=== PATIENT | female | born 1940 | race African-American/Black ===

== ENCOUNTER 2017-12-05 09:49 | Outpatient (CLI) | payer OTHER | END 2017-12-05 09:50 | disposition home or self-care (01) | LOC: BICMAMMO 09:49 | PROVIDERS: ATTEND Family Medicine | DX: Z12.31 Encounter for screening mammogram for malignant neoplasm of breast (principal); R92.1 Mammographic calcification found on diagnostic imaging of breast; Z80.3 Family history of malignant neoplasm of breast | CPT/HCPCS: 77067 ==

== ENCOUNTER 2019-05-31 08:17 | Outpatient (CLI) | payer OTHER ==
--- NOTE | 2019-05-31 10:44 | ULT ---
BILATERAL RENAL ULTRASOUND: Date: 05/31/19 HISTORY: Chronic renal insufficiency. FINDINGS: The right kidney measures 8.2 cm in length and the left kidney measures 8.4 cm in length. No focal ma ss or hydronephrosis seen on either side. There is mild prominence of the left renal pelvis. Pre-void bladder volume measures 150 mL with a residual volume of 60 mL. Bilateral ureteral jets are seen. IMPRESSION: Significant post-void residual bladder volume. POS: OFF
== END 2019-05-31 08:18 | disposition home or self-care (01) ==
LOC: BICULT 08:17
PROVIDERS: ATTEND Internal Medicine Nephrology
DX: N18.3 Chronic kidney disease, stage 3 (moderate) (principal)
CPT/HCPCS: 76770

== ENCOUNTER 2020-04-18 14:38 | Emergency (ER) | payer OTHER ==
[2020-04-18] MEDS ORDERED: Loperamide HCl 2 MG CAP ONE (15:04)
[2020-04-18 15:17] LABS: Hemoglobin 12.5 g/dL (12.0-16.0); Mean Corpuscular HGB CONC 34.6 g/dL (32.0-36.0); Mean Corpuscular Hemoglobin 28.6 pg (27.0-31.0); Mean Corpuscular Volume 82.7 fL (78.0-98.0); Mean Platelet Volume 9.2 fL (7.4-10.4); Platelet Count 174 thou/uL (130-400); RBC Distribution Width 13.4 % (11.5-14.5); Red Blood Cell (RBC) Count 4.35 mill/uL (4.20-5.40); White Blood Cell (WBC) Count 6.6 thou/uL (4.8-10.8)
[2020-04-18 15:26] LABS: Bilirubin Negative (Negative); Blood, Urine Negative (Negative); Clarity Clear (Clear); Glucose, Urine (Dipstick) Normal (Negative); Leukocyte Negative Leu/uL (Negative); Nitrite Negative (Negative); Protein, Urine (Dipstick) 30 mg/dL (Neg-Trace); RBC/HPF None Seen HPF (0-3); Squamous Epithelial 0-3 HPF (0-3); Urobilinogen Normal mg/dL (Less than 2); WBC/HPF 0-3 HPF (0-3)
[2020-04-18 15:34] LABS: Bacteria/HPF 1+ HPF (None Seen)
--- NOTE | 2020-04-18 15:36 | RAD ---
PORTABLE CHEST 1 VIEW: Date: 04/18/2020 Time: 1456 hours HISTORY: Cough. FINDINGS: Comparison made with exam of 06/14/2015. The heart size is normal. The lungs are expanded without focal areas of consolidation, pneumothoraces , or pleural effusions. IMPRESSION: No radiographic evidence of acute cardiopulmonary process. POS: [facility]
[2020-04-18 15:37] LABS: ALT (SGPT) 34 U/L (8-55); AST (SGOT) 42 U/L (5-34); Albumin 3.5 g/dL (3.4-4.8); Alkaline Phosphatase 60 U/L (40-110); Anion Gap 15 mmol/L (10-20); BUN (Urea Nitrogen) 20 mg/dL (9.8-20.1); Bilirubin, Total 0.3 mg/dL (0.2-1.2); Calc. Creatinine Clearance 0 mL/min (70-130); Calcium 8.2 mg/dL (7.8-10.44); Carbon Dioxide 20 mmol/L (23-31); Chloride 103 mmol/L (98-107); Estimated GFR-MDRD 40; Globulin 4.1 g/dL (2.4-3.5); Glucose 96 mg/dL (83-110); Lipase 55 U/L (8-78); Potassium 3.9 mmol/L (3.5-5.1); Protein, Total 7.6 g/dL (6.0-8.3); Sodium 134 mmol/L (136-145)
[2020-04-18 15:39] LABS: Band 8 % (5-11); Eosinophils 1 % (0-10); Lymphocytes 15 % (21-51); MDiff Complete? YES; Metamyelocyte 1 % (0-0); Monocytes 3 % (0-10); Neutrophil 72 % (42-75); Platelet Morphology Comment Appears Adequate; RBC Morphology Normal
[2020-04-19 16:18] LABS: SARS-CoV-2 MS2 Positive; SARS-CoV-2 N Gene Positive; SARS-CoV-2 S Gene Positive; SARS-CoV-2 orf1ab Positive
== END 2020-04-18 17:21 | disposition home or self-care (01) ==
LOC: ERS 14:38
DX: U07.1 COVID-19 (principal); R19.7 Diarrhea, unspecified; R05 Cough; I10 Essential (primary) hypertension; Z86.73 Personal history of transient ischemic attack (TIA), and cerebral infarction without residual deficits; F17.220 Nicotine dependence, chewing tobacco, uncomplicated; F03.90 Unspecified dementia, unspecified severity, without behavioral disturbance, psychotic disturbance, mood disturbance, and anxiety
CPT/HCPCS: 71045; 80053; 81003; 81015; 83690; 85025; 87635; 96360; U0003

== ENCOUNTER 2022-12-13 13:46 | Outpatient (CLI) | payer OTHER | END 2022-12-13 13:47 | disposition home or self-care (01) | LOC: ULT 13:46 | PROVIDERS: ATTEND Internal Medicine | DX: I11.0 Hypertensive heart disease with heart failure (principal); I50.9 Heart failure, unspecified | CPT/HCPCS: 93306 ==

== ENCOUNTER 2023-01-07 09:17 | Outpatient (CLI) | payer OTHER | END 2023-01-07 09:18 | disposition home or self-care (01) | LOC: BICRAD 09:17 | PROVIDERS: ATTEND Obstetrics & Gynecology | DX: M25.461 Effusion, right knee (principal); M17.11 Unilateral primary osteoarthritis, right knee ==